=== PATIENT | female | born 1985 | race African-American/Black ===

== ENCOUNTER 2021-07-01 09:18 | Emergency (ER) | payer OTHER, SELFPAY ==
[2021-07-01 09:29] VITALS: BP 119/81; PULSE 104; RESP 16; TEMP 37.1; O2SAT 99
--- NOTE | 2021-07-01 10:35 | ED.URI ---
HPI - URI/Sore Throat General Chief Complaint: Ear Stated Complaint: Ear Pain Time Seen by Provider: 07/01/21 10:17 Source: patient and RN notes reviewed Mode of arrival: ambulatory Limitations: no limitations History of Present Illness HPI Narrative: Patient presents today complaining of right ear pain x2 days with sore throat that is most painful with swallowing. Patient currently rates her pain 10/10. Denies difficulty swallowing, fever, cough, congestion or rhinorrhea. She has been taking some leftover [place] without relief. MD elicited complaint: sore throat and other (Ear pain) Related Data Allergies Allergy/AdvReac Type Severity Reaction Status Date / Time No Known Allergies Allergy Verified 07/13/19 12:27 Review of Systems Review of Systems: CONSTITUTIONAL: Denies body aches, fever, chills, or sweats. EYES: Denies visual changes, redness, or discharge. ENT: Denies rhinorrhea, congestion. + Ear pain, sore throat CARDIOVASCULAR: Denies chest pain, palpitations, or edema. RESPIRATORY: Denies cough or dyspnea. GASTROINTESTINAL: Denies abdominal pain, nausea, vomiting, or diarrhea. GENITOURINARY: Denies dysuria or hematuria. SKIN: Denies rash, itching, or wounds. MUSCULOSKELETAL: Denies back pain, joint pain, or myalgia. NEUROLOGIC: Denies headache, numbness, tingling, or weakness. PSYCH: Denies depression or anxiety. [facility] Past Medical History Medical History Asthma Depression Fracture of left hand Hodgkin's lymphoma Pulmonary embolism Surgical History Surgical History H/O tubal ligation Family History Family History Mother Patient's mother is in good health Father Patient's father is in good health Grandparent Diabetes mellitus Other Asthma Social History Social History Alcohol intake: current Comments At time of signature, I have reviewed and agree with nursing past medical, surgical, social and family history unless otherwise noted. Please see nursing chart for further information. There is no relevant family history pertinent to the presenting complaint Exam Narrative: GENERAL: Well-appearing, well-nourished, and in no acute distress. HEAD: Normocephalic, atraumatic. EYES: EOMI. No redness or drainage. Conjunctivae normal. ENT: Mucous membranes pink and moist. Nares clear. No rhinorrhea. TMs normal bilaterally. Throat mildly erythematous. Small amount of white exudate on the right tonsil. Uvula midline. NECK: Normal AROM. Supple. Right anterior cervical chain lymphadenopathy. CHEST: No respiratory distress. Clear to auscultation. HEART: Regular rate and rhythm. No murmur appreciated. Normal peripheral pulses. EXTREMITIES: Normal range of motion. No edema. SKIN: Warm, dry, no rash. Capillary refill normal. Normal skin turgor. NEURO: No focal deficits. Alert and oriented x3. Gait steady. PSYCH: Normal affect. No signs of depression or anxiety. Course Vital Signs Vital signs: Vital Signs Temperature 98.8 F 07/01/21 09:29 Pulse Rate 104 H 07/01/21 09:29 Respiratory Rate 16 07/01/21 09:29 Blood Pressure 119/81 07/01/21 09:29 Pulse Oximetry 99 07/01/21 09:29 Temperature 98.8 F 07/01/21 09:29 Pulse Rate 104 H 07/01/21 09:29 Respiratory Rate 16 07/01/21 09:29 Blood Pressure 119/81 07/01/21 09:29 Pulse Oximetry 99 07/01/21 09:29 Reviewed. Pt has been instructed to follow up with her PCP regarding her elevated blood pressure today. MDM - URI/Sore Throat Differential Diagnosis Differential diagnosis: Likely upper respiratory infection, otitis media, sinusitis, viral infection, pharyngitis and other (Strep throat) Lab Data Attestation: I reviewed the patient's lab results. Labs: Strep Screen
== END 2021-07-01 10:48 | disposition home or self-care (01) ==
PROVIDERS: Emergency Provider Nurse Practitioner
DX: J02.8 Acute pharyngitis due to other specified organisms (principal); J45.909 Unspecified asthma, uncomplicated; Z85.71 Personal history of Hodgkin lymphoma; Z86.711 Personal history of pulmonary embolism
CPT/HCPCS: 87081; 87880; 99213; G0463

== ENCOUNTER 2021-12-28 11:25 | Emergency (ER) | payer OTHER, SELFPAY ==
[2021-12-28 11:33] VITALS: BP 125/71; PULSE 104; RESP 16; TEMP 36.3; O2SAT 100
--- NOTE | 2021-12-28 11:48 | ED.URI ---
HPI - URI/Sore Throat General Chief Complaint: Upper Respiratory Infection Stated Complaint: sore throat/ear pain Time Seen by Provider: 12/28/21 11:35 Source: patient Mode of arrival: ambulatory Limitations: no limitations History of Present Illness HPI Narrative: Mayela is a 36-year-old female patient presenting to the clinic today with complaints of sore throat and ear pain x2 days. She reports that she has had fever and chills as well. No known exposure to anyone with COVID, flu, or strep. MD elicited complaint: fever, sore throat and other (Right ear pain) Related Data Allergies Allergy/AdvReac Type Severity Reaction Status Date / Time No Known Allergies Allergy Verified 07/13/19 12:27 Review of Systems Review of Systems: Pertinent positives per HPI. Patient denies any rash, headache, visual changes, dizziness, cough, shortness of breath, chest pain, palpitations, nausea, vomiting, diarrhea, constipation, abdominal pain, or any urinary issues. PMFSH Past Medical History Medical History Asthma Depression Fracture of left hand Hodgkin's lymphoma Pulmonary embolism Surgical History Surgical History H/O tubal ligation Family History Family History Mother Patient's mother is in good health Father Patient's father is in good health Grandparent Diabetes mellitus Other Asthma Social History Social History Alcohol intake: current Comments At the time of my signature, I reviewed and agree with the nursing past medical, surgical, social, and family history. There is no relevant family history pertinent to the patient complaint. Exam Narrative: General: Well-developed, well nourished, in no apparent distress Head: Normocephalic, atraumatic Eyes: Pupils equally round and reactive to light bilaterally, EOM intact, sclera and conjunctive clear, no discharge, lids normal Ears: Left TMs intact, dull, mild bulging, right TM intact, red, bulging, ear canals clear, no drainage, grossly hearing normal. Nose: Nares patent, clear nasal discharge, mild inflammation, no sinus tenderness. Mouth: Oral pharynx without lesions or masses, good dentition, MMM. Bilateral tonsillar edema 2+ with white exudate Neck: Supple, trachea midline, enlargement of anterior cervical nodes, no thyroid masses or goiter palpable. Cardio: Regular rate and rhythm, s1 and s2 normal, no murmur appreciated. Resp: Clear to auscultation bilaterally, no rhonchi, rales, wheezing or rubs Course Course Emergency Course: Portions of this record may have been created with voice recognition software. Level of Care: Express Care Visit Vital Signs Vital signs: Vital Signs Temperature 36.3 C L 12/28/21 11:33 Pulse Rate 104 H 12/28/21 11:33 Respiratory Rate 16 12/28/21 11:33 Blood Pressure 125/71 12/28/21 11:33 Pulse Oximetry 100 12/28/21 11:33 Temperature 36.3 C L 12/28/21 11:33 Pulse Rate 104 H 12/28/21 11:33 Respiratory Rate 16 12/28/21 11:33 Blood Pressure 125/71 12/28/21 11:33 Pulse Oximetry 100 12/28/21 11:33 Vital signs reviewed MDM - URI/Sore Throat MDM Narrative Medical decision making narrative: At the time of visit patient is resting uncomfortably on the exam table. Reports right ear pain and sore throat. Strep screen was obtained and was positive for strep. Right TM red, bulging, intact. I we will treat for strep pharyngitis/right otitis media using azithromycin as patient stated that she had a penicillin allergy when she was younger. Supportive measures were discussed with patient and she agreed to discharge plan. Differential Diagnosis Differential diagnosis: Likely upper respiratory infection, croup, otitis media, sinusitis, viral infection, bronchi
== END 2021-12-28 11:54 | disposition home or self-care (01) ==
PROVIDERS: Emergency Provider Nurse Practitioner Family
DX: J02.0 Streptococcal pharyngitis (principal); H66.001 Acute suppurative otitis media without spontaneous rupture of ear drum, right ear
CPT/HCPCS: 87880; 99213; G0463

== ENCOUNTER 2022-11-28 16:31 | Emergency (ER) | payer OTHER, SELFPAY ==
[2022-11-28] VITALS (23 sets, daily range): BP systolic 114–137; BP diastolic 68–108; PULSE 0–122; RESP 0–26; TEMP 36.8; O2SAT 98–99
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
--- NOTE | ~2022-11-28 | XR_ITS ---
EXAMINATION: XR femur RT min 2V INDICATION: Right leg pain TECHNIQUE: Two views of the right femur are obtained on three radiographs. COMPARISON: None available FINDINGS: No fracture, dislocation, or subluxation. The bones, soft tissues, and joint spaces are nor mal. IMPRESSION: 1. No acute osseous abnormality. Reviewed, dictated and finalized at location L.
--- NOTE | ~2022-11-28 | XR_ITS ---
EXAMINATION: XR knee LT 3V DATE: 11/28/2022 21:14 INDICATION: Left knee pain TECHNIQUE: Four views of the left knee were obtained. COMPARISON: None. FINDINGS: Alignment is normal. No fracture or osteochondral lesion. Joint spaces are normal with no e rosions. No joint effusion/synovitis. Soft tissues are unremarkable. IMPRESSION: 1. No acute osseous abnormality. Reviewed, dictated and finalized at location L.
--- NOTE | ~2022-11-28 | CT_ITS ---
EXAMINATION: CT chest abdomen pelvis w con DATE: 11/28/2022 20:55 INDICATION: Respiratory and two quarters TECHNIQUE: Computed tomography (CT) of the chest, abdomen, and pelvis was performed with 100 mL Omnip aque-350 intravenous contrast. Automated exposure control and iterative reconstruction technique were employed. The dose-length product was 1546.40 mGy-cm. COMPARISON: CT chest dated 12/06/[address] abdomen and pelvis dated 10/18/2013 FINDINGS: CHEST CT: Small calcified left upper lobe nodule consistent with old granulomatous disease. A few small bulla a nd mild pleural parenchymal scarring at the right apex. Subtle mosaic attenuation in the lungs consis tent with small airway disease. No pneumonia, pulmonary edema, pleural effusion or pneumothorax. Hear t size is normal. No pericardial effusion. Thoracic aorta is normal in caliber with no dissection or acute traumatic aortic injury. Multinodular goiter. Moderate-sized sliding-type hiatal hernia. There is edematous-appearing wall thickening in the distal esophagus which could be seen with esophagitis. Slight increase in size of a 1.7 x 1.3 cm subcarinal nodule, potentially a lymph node which exerts ma ss effect upon the right anterior wall of the esophagus which previously measured 1.5 x 1.2 cm. No ot her pathologically enlarged thoracic lymphadenopathy. Chronic appearing mild compression fractures at T8 and T11 with 20% anterior vertebral body height loss which is new since 2018. Unchanged sclerotic T6 bone island. ABDOMEN/PELVIS CT: Focal hepatic steatosis at the ligamentum teres. Stable calcified gallstones in the normal-appearing gallbladder with no evident wall thickening or pericholecystic inflammatory stranding to suggest acut e cholecystitis. Pancreas, spleen, right adrenal gland and bilateral kidneys are normal. 1.2 cm macro scopic fat attenuation left adrenal myelolipoma. Bowels including the appendix are normal. Fibroid ut erus which exerts mass effect upon the partially decompressed bladder. The largest uterine fibroid me asures 10.2 cm. No free intraperitoneal gas or fluid. No pathologically enlarged abdominal or pelvic lymphadenopathy. Chronic right sided L5 pars interarticularis defect. No acute onset mild to . IMPRESSION: 1. No acute fractures or acute visceral organ injury in the chest, abdomen or pelvis. 2. Moderate-sized sliding-type hiatal hernia with chronic wall thickening at the distal esophagus whi ch could be seen with esophagitis related to reflux. 3. Slight interval enlargement in a now 1.7 x 1.3 cm subcarinal nodule, likely a lymph node which cou ld be reactive but does raise some concern for recurrence of known history of prior Hodgkin's lymphom a. 4. Cholelithiasis. 5. Fibroid uterus. Reviewed, dictated and finalized at location A. IMPRESSION: 1. No acute fractures or acute visceral organ injury in the chest, abdomen or p caio. 2. Moderate-sized sliding-type hiatal hernia with chronic wall thickening at th e distal esophagus which could be seen with esophagitis related to reflux. 3. Slight interval enlargement in a now 1.7 x 1.3 cm subcarinal nodule, likely a lymph node which could be reactive but does raise some concern for recurrence of known history of prior Hodgkin's lymphoma. 4. Cholelithiasis. 5. Fibroid uterus.
--- NOTE | ~2022-11-28 | XR_ITS ---
EXAMINATION: XR knee RT 3V DATE: 11/28/2022 21:14 INDICATION: Right knee pain TECHNIQUE: Four views of the right knee were obtained. COMPARISON: 12/31/2018 FINDINGS: Alignment is normal. No fracture or osteochondral lesion. There is mild tricompartmental os teoarthritis characterized by tiny marginal osteophytes. No joint effusion/synovitis. Soft tissues a re unremarkable. IMPRESSION: 1. No acute osseous abnormality. Reviewed, dictated and finalized at location L.
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
--- NOTE | ~2022-11-28 | XR_ITS ---
EXAMINATION: XR femur LT min 2V INDICATION: Left femur pain TECHNIQUE: Two views of the left femur are obtained on four radiographs. COMPARISON: None available FINDINGS: No fracture, dislocation, or subluxation. The bones, soft tissues, and joint spaces are nor mal. IMPRESSION: 1. No acute osseous abnormality. Reviewed, dictated and finalized at location L.
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
--- NOTE | 2022-11-28 16:58 | PC.NURSE ---
Patient refused to wear c-collar and removed it
[2022-11-28] MEDS: ONDANSETRON INJ 4 MG/2 ML VIAL IV PUSH (19:59)
[2022-11-28 20:09] LABS: Basophils Absolute Auto 0.1 K/mm3 (0.0-0.1); Basophils Percent Auto 0.9 % (0.2-1.2); Eosinophils Absolute Auto 0.1 K/mm3 (0-0.3); Eosinophils Percent Auto 1.3 % (0-4.4); Hematocrit 39.1 % (37.0-47.0); Hemoglobin 12.1 g/dL (12.0-15.0); Immature Granulocyte Absolute 0.03 K/mm3 (0.00-0.031); Immature Granulocyte Percent A 0.3 % (0-0.5); Lymphocytes Absolute Auto 3.54 K/mm3 (0.9-3.2); Lymphocytes Percent Auto 39.6 % (18.3-44.2); Mean Corpuscular HGB Conc 30.9 g/dl (32-36); Mean Corpuscular Volume 83.9 fl (80-100); Mean Platelet Volume 9.3 fl (7.4-10.4); Monocytes Absolute Auto 0.7 K/mm3 (0.1-0.6); Monocytes Percent Auto 7.5 % (2.6-8.5); Neutrophils Absolute Auto 4.5 K/mm3 (1.3-6.7); Neutrophils Percent Auto 50.4 % (45.5-73.1); Platelet Count Result 327 k/mm3 (150-375); Red Blood Count 4.66 M/mm3 (4.2-5.4); Red Cell Distribution Width 15.6 % (11.5-14.5)
[2022-11-28 20:21] LABS: Alanine Aminotransferase 34 U/L (6-35); Albumin Level 4.9 g/dL (3.5-5.1); Alkaline Phosphatase 78 U/L (38-126); Anion Gap 18 mmol/L (8-16); Aspartate Amino Transferase 35 U/L (14-36); Bilirubin,Total 0.6 mg/dL (0.2-1.3); Blood Urea Nitrogen 9 mg/dL (7-17); Calcium 8.7 mg/dL (8.4-10.2); Carbon Dioxide 20 mmol/L (22-30); Chloride 106 mmol/L (98-107); Estimated CRCL calculation 106 ml/min; Estimated Glomerular Filt Rate > 60; Ethanol 180 mg/dL (<10); Glucose 110 mg/dL (65-110); Potassium 3.6 mmol/L (3.4-5.0); Sodium 144 mmol/L (137-145)
[2022-11-28 20:40] LABS: Appearance Urine Clear (Clear); Bacteria Urine 4+ /hpf; Bilirubin Urine Negative (Negative); Blood Urine Negative (Negative); Color Urine Yellow (Yellow); Glucose Urine UA Negative (Negative); Ketones Urine Negative (Negative); Leukocyte Esterase Ur Negative LEU/UL (Negative); Nitrate Urine Positive (Negative); Non Pathogenic Casts 0-2; Protein Urine Negative (Negative); RBC Urine 0-2 /hpf (0-2); Specific Grav Ur 1.011 (1.001-1.035); Squamous Epithelial Cell Urine Occasional /hpf (Few); WBC Urine 0-5 /hpf; pH Urine 7.5 (5.0-9.0)
[2022-11-28 20:41] LABS: Add Urine Microscopic? YES
[2022-11-28 20:46] LABS: Amphetamine Screen Urine Negative (Negative); Barbiturate Screen Urine Negative (Negative); Benzodiazepines Screen Urine Negative (Negative); Cannabinoid Screen Urine Positive (Negative); Cocaine Screen Urine Negative (Negative); Methadone Screen Urine Negative (Negative); Opiate Screen Urine Negative (Negative); Phencyclidine Screen Urine Negative (Negative)
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
== END 2022-11-28 23:57 | disposition home or self-care (01) ==
PROVIDERS: Emergency Provider Emergency Medicine
DX: S20.219A Contusion of unspecified front wall of thorax, initial encounter (principal); F10.129 Alcohol abuse with intoxication, unspecified; Y90.6 Blood alcohol level of 120-199 mg/100 ml; J45.909 Unspecified asthma, uncomplicated; Z85.71 Personal history of Hodgkin lymphoma; Z86.711 Personal history of pulmonary embolism; K80.20 Calculus of gallbladder without cholecystitis without obstruction; M47.812 Spondylosis without myelopathy or radiculopathy, cervical region; D25.9 Leiomyoma of uterus, unspecified; K44.9 Diaphragmatic hernia without obstruction or gangrene; R91.8 Other nonspecific abnormal finding of lung field; V03.10XA Pedestrian on foot injured in collision with car, pick-up truck or van in traffic accident, initial encounter
CPT/HCPCS: 36415; 70450; 71101; 71260; 72100; 72125; 73552; 73562; 74177; 80053; 80307; 81001; 81025; 85025; 96374; 99284; J2405; L0140; Q9967

== ENCOUNTER 2023-01-10 18:35 | Emergency (ER) | payer OTHER, SELFPAY ==
--- NOTE | 2023-01-10 18:39 | ED.GENADULT ---
HPI - General Adult General Chief complaint: Urogenital-Female Stated complaint: Vaginal Problems Time Seen by Provider: 01/10/23 18:42 Source: patient, RN notes reviewed and old records reviewed Mode of arrival: ambulatory Limitations: no limitations History of Present Illness HPI narrative: 37-year-old female presents to the [facility] morning her blood checked. Requesting labs. Explained to patient that we do not offer that service. Patient states she got her period 5 days ago. States that this period Was extremely heavy and was concerned for her blood levels. States that she had to call in sick to work the last several days. States that she goes through several tampons a day. Unsure of the actual count. Had a history of a blood transfusion January of 2022 Reviewed March 2023 both levels from ER, within normal range Requesting a work note. Related Data Home Medications Medication Instructions Recorded Confirmed No Home Medications 01/10/23 01/10/23 Allergies Allergy/AdvReac Type Severity Reaction Status Date / Time Penicillins Allergy Hives Verified 11/28/22 20:12 Review of Systems Review of Systems: All systems reviewed & are unremarkable except as noted in HPI and below Constitutional: Constitutional: Reports no additional constitutional complaints Eyes: Eyes: Reports no additional eye complaints ENT: Reports system reviewed and no additional complaints, except as documented Cardiovascular: Cardiovascular: Reports no additional cardiovascular complaints, Denies chest pain and Denies dyspnea Respiratory: Respiratory: Reports no additional respiratory complaints, Denies chest congestion, Denies cough and Denies dyspnea Gastrointestinal: Gastrointestinal: Reports no additional gastrointestinal complaints, Denies abdominal pain, Denies nausea and Denies vomiting Genitourinary: Genitourinary: Reports as per HPI and Reports abnormal vaginal bleeding Musculoskeletal: Musculoskeletal: Reports no additional musculoskeletal complaints Integumentary/Breasts: Skin/Breast: Reports system reviewed and no additional complaints, except as docu Neurologic: Reports system reviewed and no additional complaints, except as documented Psychiatric: Psychiatric: Reports no additional psychiatric complaints Allergic/Immunologic: Allergic/Immunologic: Reports no additional allergic/immunologic complaints PMFSH Past Medical History Medical History Asthma Depression Fracture of left hand Hodgkin's lymphoma Pulmonary embolism Surgical History Surgical History H/O tubal ligation Family History Family History Mother Patient's mother is in good health Father Patient's father is in good health Grandparent Diabetes mellitus Other Asthma Social History Social History Alcohol intake: current Comments At the time of my signature, I reviewed and agree with the nursing past medical, surgical, social, and family history. There is no relevant family history pertinent to the patient complaint. Exam Const: General: cooperative, no acute distress, well developed, alert, uncomfortable, well nourished and underweight Nutritional Appearance: well nourished Orientation/consciousness: patient oriented x3 Limitations: no limitations HENMT: Head: normal to inspection Ears: hearing grossly normal bilaterally and external ears normal Face/Nose/Sinus: Normal external nose present, Normal nares present, Normal nasal mucous membranes and turbinates present and normal facial exam Face and sinus: normal facial exam Mouth: Yes Normal oral and palatal mucosa present, Yes lip normal and Yes moist mucous membranes Throat: posterior oropharynx normal and uvula midline Eyes: General: appearance normal, vinay
[2023-01-10 18:41] VITALS: BP 133/89; PULSE 99; RESP 16; TEMP 36.6; O2SAT 100
== END 2023-01-10 18:59 | disposition home or self-care (01) ==
PROVIDERS: Emergency Provider Nurse Practitioner; PCP Physician Assistant
DX: N92.0 Excessive and frequent menstruation with regular cycle (principal); J45.909 Unspecified asthma, uncomplicated; Z86.711 Personal history of pulmonary embolism; Z85.71 Personal history of Hodgkin lymphoma
CPT/HCPCS: 99211; G0463

== ENCOUNTER 2024-08-13 16:57 | Emergency (ER) | payer OTHER, SELFPAY ==
[2024-08-13 17:17] VITALS: BP 155/96; PULSE 96; RESP 17; TEMP 36.4; O2SAT 100
--- NOTE | 2024-08-13 17:22 | ED_ITS ---
HPI - General Adult General Chief complaint: Recheck/Abnormal Lab/Rx <Jory Encarnacion APRN - Last Filed: 08/13/24 17:26> Stated complaint: HTN, gen. weakness <Jory Encarnacion APRN - Last Filed: 08/13/24 17:26> Time Seen by Provider: 08/13/24 17:15 <Jory Encarnacion APRN - Last Filed: 08/13/24 17:26> Focused HPI: Patient is a 38-year-old female who presents to the ER with complaints of not feeling well and feeling weak. She reports this is been going on for a long time. Patient reports she has a history of high blood pressure it is not medicated for it. She denies any headache, abdominal pain, urinary symptoms, one-sided weakness/tingling/numbness. Patient reports she has a history of Hodgkin's lymphoma and a pulmonary embolism. Reports she has been trying to see her primary care provider but she keeps cancelling appointments. GENERAL: Ill-appearing, well-nourished, and in mild distress d/t vomiting. HEAD: Normocephalic, atraumatic. CHEST: Clear to auscultation. ?No respiratory distress. HEART: Regular rate and rhythm.? NEURO: ?Alert and oriented x3. Patient screened in triage and initial orders placed.? ?Additional care and disposition to be based upon?diagnostic testing and treatment. <Jory Encarnacion APRN - Last Filed: 08/13/24 17:26> History of Present Illness HPI narrative: Patient 30-year-old female who presents emergency department with chief complaint of not feeling well. Patient reports she has been weak for a long period of time reports that she has history of high blood pressure but currently not taking medications. Patient states that she has had issues with anemia before and has had transfusions in the past patient reports that she has a primary care provider but is not going to appointments because there has been cancellations of appointments the patient denies chest pain denies shortness of breath <Rinku Castillo MD - Last Filed: 08/13/24 22:05> Related Data Allergies/adverse reactions: Allergies Allergy/AdvReac Type Severity Reaction Status Date / Time Penicillins Allergy Hives Verified 08/13/24 17:03 <Jory Encarnacion APRN - Last Filed: 08/13/24 17:26> Review of Systems 2 Review of Systems: A 10 system review of systems was completed on the patient and is negative except for what is stated in the HPI. Nursing and ancillary documentation was reviewed. <Rinku Castillo MD - Last Filed: 08/13/24 22:05> PMFSH Past Medical History Medical History: Medical History Hodgkin's lymphoma Fracture of left hand Depression Pulmonary embolism Asthma <Jory Encarnacion APRN - Last Filed: 08/13/24 17:26> Surgical History Surgical History: Surgical History H/O tubal ligation <Jory Encarnacion APRN - Last Filed: 08/13/24 17:26> Family History Family History: Family History Mother Patient's mother is in good health Father Patient's father is in good health Grandparent Diabetes mellitus Other Asthma <Jory Encarnacion APRN - Last Filed: 08/13/24 17:26> Social History Social History: Social History Alcohol intake: current <Jory Encarnacion APRN - Last Filed: 08/13/24 17:26> Exam 2 Narrative: GENERAL: Well-appearing, well-nourished, and in no acute distress. HEAD: Normocephalic, atraumatic. EYES: PERRLA and EOMI. ENT: Nares clear, no rhinorrhea or epistaxis. Mucous membranes moist. NECK: Supple. CHEST: Clear to auscultation. No respiratory distress. HEART: Regular rate and rhythm. No murmur heard. Normal peripheral pulses. ABDOMEN: Soft, nontender, nondistended, normal active bowel sounds. EXTREMITIES: Normal range of motion. No edema. SKIN: Warm, dry, no rash. NEURO: No focal deficits. Alert and oriented x3. PSYCH: Normal mood and affect. <Rinku Castillo MD - Last Filed: 08/13/24 22:05> Course Vital Signs Vital signs: Vital Signs Temperature 36.4 C 08/13/24 17:17 Pulse Rate 96 08/13/24 17:17 Respiratory Rate 17 08/13/24 17:17 Blood Pressure 155/96 H 08/13/24 17:17 Pulse Oximetry 100 08/13/24 17:17 Temperature 36.4 C 08/13/24 17:17 Pulse Rate 96 08/13/24 17:17 Respiratory Rate 17 08/13/24 17:17 Blood Pressure 155/96 H 08/13/24 17:17 Pulse Oximetry 100 08/13/24 17:17 <Jory Encarnacion, [employer] - Last Filed: 08/13/24 17:26> Vital Signs Temperature 36.4 C 08/13/24 17:17 Pulse Rate 96 08/13/24 17:17 Respiratory Rate 17 08/13/24 17:17 Blood Pressure 155/96 H 08/13/24 17:17 Pulse Oximetry 100 08/13/24 17:17 Temperature 36.4 C 08/13/24 17:17 Pulse Rate 96 08/13/24 17:17 Respiratory Rate 17 08/13/24 17:17 Blood Pressure 155/96 H 08/13/24 17:17 Pulse Oximetry 100 08/13/24 17:17 <Rinku Castillo MD - Last Filed: 08/13/24 22:05> Medical Decision Making MDM Narrative Medical decision making narrative: Differential diagnosis includes anemia, electrolyte abnormality, UTI, dehydration Patient's blood pressure is currently 155/96. Patient shows no focal neurological deficits denies chest pain denies shortness of breath is not tachycardic or hypotensive or hypoxic. Urinalysis showed evidence of UTI patient will be started on Keflex <Rinku Castillo MD - Last Filed: 08/13/24 22:05> Vital Signs Vital Signs: Vital Signs Temperature 36.4 C 08/13/24 17:17 Pulse Rate 96 08/13/24 17:17 Respiratory Rate 17 08/13/24 17:17 Blood Pressure 155/96 H 08/13/24 17:17 Pulse Oximetry 100 08/13/24 17:17 Temperature 36.4 C 08/13/24 17:17 Pulse Rate 96 08/13/24 17:17 Respiratory Rate 17 08/13/24 17:17 Blood Pressure 155/96 H 08/13/24 17:17 Pulse Oximetry 100 08/13/24 17:17 <Jory Encarnacion APRN - Last Filed: 08/13/24 17:26> Vital Signs Temperature 36.4 C 08/13/24 17:17 Pulse Rate 96 08/13/24 17:17 Respiratory Rate 17 08/13/24 17:17 Blood Pressure 155/96 H 08/13/24 17:17 Pulse Oximetry 100 08/13/24 17:17 Temperature 36.4 C 08/13/24 17:17 Pulse Rate 96 08/13/24 17:17 Respiratory Rate 17 08/13/24 17:17 Blood Pressure 155/96 H 08/13/24 17:17 Pulse Oximetry 100 08/13/24 17:17 <Rinku Castillo MD - Last Filed: 08/13/24 22:05> Lab Data Result diagrams: 08/13/24 17:57 08/13/24 17:57 <Jory Encarnacion APRN - Last Filed: 08/13/24 17:26> Labs: Lab Results 08/13/24 08/13/24 08/13/24 Range/Units 17:54 17:57 21:43 WBC 4.1 L (4.5-10.0) K/mm3 RBC 3.67 L (4.2-5.4) M/mm3 Hgb 9.3 L (12.0-15.0) g/dL Hct 30.6 L (37.0-47.0) % MCV 83.4 (80-100) fl MCH 25.3 L (26-34) pg MCHC 30.4 L (32-36) g/dl RDW 15.9 H (11.5-14.5) % Plt Count 360 (150-375) k/mm3 MPV 9.1 (7.4-10.4) fl Immature Gran % (Auto) 0.2 (0-0.5) % Neut % (Auto) 58.7 (45.5-73.1) % Lymph % (Auto) 31.7 (18.3-44.2) % Walton % (Auto) 7.4 (2.6-8.5) % Eos % (Auto) 1.0 (0-4.4) % Baso % (Auto) 1.0 (0.2-1.2) % Lymph # (Auto) 1.29 (0.9-3.2) K/mm3 Walton # (Auto) 0.3 (0.1-0.6) K/mm3 Eos # (Auto) 0.0 (0-0.3) K/mm3 Baso # (Auto) 0.0 (0.0-0.1) K/mm3 Abs Immat Gran (auto) 0.01 (0.00-0.031) K/mm3 Absolute Neuts (auto) 2.4 (1.3-6.7) K/mm3 Absolute Nucleated RBC 0.000 (0.0-0.012) K/mm3 Nucleated RBC % 0.0 (0.0-0.2) % Sodium 140 (137-145) mmol/L Potassium 3.7 (3.4-5.0) mmol/L Chloride 107 (98-107) mmol/L Carbon Dioxide 27 (22-30) mmol/L Anion Gap 6 (4-12) mmol/L BUN 12 (7-17) mg/dL Creatinine 0.70 (0.7-1.0) mg/dL Estim Creat Clear Calc Not Reportable Estimated GFR > 60 (59 - ) Glucose 82 (65-110) mg/dL POC Capillary Glucose 73 (65-105) mg/dl Lactic Acid 2.1 H (0.7-2.0) mmol/L Calcium 8.6 (8.4-10.2) mg/dL Total Bilirubin 0.4 (0.2-1.3) mg/dL AST 27 (14-36) U/L ALT 20 (6-35) U/L Alkaline Phosphatase 66 (38-126) U/L Total Protein 7.0 (6.3-8.2) g/dL Albumin 4.1 (3.5-5.1) g/dL Lipase 90 (23-300) U/L Beta HCG, Quant < 2.39 mIU/ML Urine Color Yellow (Yellow) Urine Appearance Cloudy H (Clear) Urine pH 7.5 (5.0-9.0) Ur Specific Chadron 1.018 (1.001-1.035) Urine Protein 1+ H (Negative) mg/dL Urine Glucose (UA) Negative (Negative) mg/dL Urine Ketones Negative (Negative) mg/dL Ur Blood (Man) Negative (Negative) Urine Nitrate Positive H (Negative) Urine Bilirubin Negative (Negative) Urine Urobilinogen 1.0 (<2.0) mg/dL Leukocyte Esterase Rfl Trace H (Negative) CHAYA/UL Urine RBC 0-2 (0-2) /hpf Urine WBC 21-50 H (0-3) /hpf Ur Squamous Epith Cells None seen (Few) /hpf Urine Bacteria 4+ H /hpf Urine Casts 0-2 <Jory Encarnacion, [employer] - Last Filed: 08/13/24 17:26> Lab Results 08/13/24 08/13/24 08/13/24 Range/Units 17:54 17:57 21:43 WBC 4.1 L (4.5-10.0) K/mm3 RBC 3.67 L (4.2-5.4) M/mm3 Hgb 9.3 L (12.0-15.0) g/dL Hct 30.6 L (37.0-47.0) % MCV 83.4 (80-100) fl MCH 25.3 L (26-34) pg MCHC 30.4 L (32-36) g/dl RDW 15.9 H (11.5-14.5) % Plt Count 360 (150-375) k/mm3 MPV 9.1 (7.4-10.4) fl Immature Gran % (Auto) 0.2 (0-0.5) % Neut % (Auto) 58.7 (45.5-73.1) % Lymph % (Auto) 31.7 (18.3-44.2) % Walton % (Auto) 7.4 (2.6-8.5) % Eos % (Auto) 1.0 (0-4.4) % Baso % (Auto) 1.0 (0.2-1.2) % Lymph # (Auto) 1.29 (0.9-3.2) K/mm3 Walton # (Auto) 0.3 (0.1-0.6) K/mm3 Eos # (Auto) 0.0 (0-0.3) K/mm3 Baso # (Auto) 0.0 (0.0-0.1) K/mm3 Abs Immat Gran (auto) 0.01 (0.00-0.031) K/mm3 Absolute Neuts (auto) 2.4 (1.3-6.7) K/mm3 Absolute Nucleated RBC 0.000 (0.0-0.012) K/mm3 Nucleated RBC % 0.0 (0.0-0.2) % Sodium 140 (137-145) mmol/L Potassium 3.7 (3.4-5.0) mmol/L Chloride 107 (98-107) mmol/L Carbon Dioxide 27 (22-30) mmol/L Anion Gap 6 (4-12) mmol/L BUN 12 (7-17) mg/dL Creatinine 0.70 (0.7-1.0) mg/dL Estim Creat Clear Calc Not Reportable Estimated GFR > 60 (59 - ) Glucose 82 (65-110) mg/dL POC Capillary Glucose 73 (65-105) mg/dl Lactic Acid 2.1 H (0.7-2.0) mmol/L Calcium 8.6 (8.4-10.2) mg/dL Total Bilirubin 0.4 (0.2-1.3) mg/dL AST 27 (14-36) U/L ALT 20 (6-35) U/L Alkaline Phosphatase 66 (38-126) U/L Total Protein 7.0 (6.3-8.2) g/dL Albumin 4.1 (3.5-5.1) g/dL Lipase 90 (23-300) U/L Beta HCG, Quant < 2.39 mIU/ML Urine Color Yellow (Yellow) Urine Appearance Cloudy H (Clear) Urine pH 7.5 (5.0-9.0) Ur Specific Chadron 1.018 (1.001-1.035) Urine Protein 1+ H (Negative) mg/dL Urine Glucose (UA) Negative (Negative) mg/dL Urine Ketones Negative (Negative) mg/dL Ur Blood (Man) Negative (Negative) Urine Nitrate Positive H (Negative) Urine Bilirubin Negative (Negative) Urine Urobilinogen 1.0 (<2.0) mg/dL Leukocyte Esterase Rfl Trace H (Negative) CHAYA/UL Urine RBC 0-2 (0-2) /hpf Urine WBC 21-50 H (0-3) /hpf Ur Squamous Epith Cells None seen (Few) /hpf Urine Bacteria 4+ H /hpf Urine Casts 0-2 <Rinku Castillo MD - Last Filed: 08/13/24 22:05> Discharge Plan Discharge Clinical Impression: Generalized weakness, Anemia, UTI (urinary tract infection) <Jory Encarnacion APRN - Last Filed: 08/13/24 17:26> Patient Disposition: Home, Self-Care <Jory Encarnacion APRN - Last Filed: 08/13/24 17:26> Condition: Stable <Jory Encarnacion APRN - Last Filed: 08/13/24 17:26> Instructions: Antibiotic Form, Urinary Tract Infection in Women (ED), Weakness (ED), Anemia (ED) <Jory Encarnacion APRN - Last Filed: 08/13/24 17:26> Patient Language: Mozambican <Jory Encarnacion APRN - Last Filed: 08/13/24 17:26> Prescriptions: New cephalexin 500 mg capsule 500 mg PO Q12H 7 Days Qty: 14 0RF <Jroy Encarnacion APRN - Last Filed: 08/13/24 17:26> Follow-up/Referrals: Jose Alejandro,PAUL Brito [Primary Care Provider] - Gurdeep Cardenas MD [Physician] - <Jory Encarnacion APRN - Last Filed: 08/13/24 17:26> Time of Disposition: 22:05 <Jory Encarnacion APRN - Last Filed: 08/13/24 17:26> 22:05 <Rinku Castillo MD - Last Filed: 08/13/24 22:05>
[2024-08-13] MEDS: ONDANSETRON HCL ODT 4 MG TABLET PO (17:26)
[2024-08-13 18:07] LABS: Glucose Point of Care 73 mg/dl (65-105)
[2024-08-13 18:08] LABS: Hematocrit 30.6 % (37.0-47.0); Hemoglobin 9.3 g/dL (12.0-15.0); Immature Granulocyte Absolute 0.01 K/mm3 (0.00-0.031); Immature Granulocyte Percent A 0.2 % (0-0.5); Lymphocytes Absolute Auto 1.29 K/mm3 (0.9-3.2); Lymphocytes Percent Auto 31.7 % (18.3-44.2); Mean Corpuscular HGB Conc 30.4 g/dl (32-36); Mean Corpuscular Hemoglobin 25.3 pg (26-34); Mean Corpuscular Volume 83.4 fl (80-100); Mean Platelet Volume 9.1 fl (7.4-10.4); Monocytes Absolute Auto 0.3 K/mm3 (0.1-0.6); Monocytes Percent Auto 7.4 % (2.6-8.5); Neutrophils Absolute Auto 2.4 K/mm3 (1.3-6.7); Neutrophils Percent Auto 58.7 % (45.5-73.1); Platelet Count Result 360 k/mm3 (150-375); Red Blood Count 3.67 M/mm3 (4.2-5.4); Red Cell Distribution Width 15.9 % (11.5-14.5); White Blood Count 4.1 K/mm3 (4.5-10.0)
[2024-08-13 18:18] LABS: Alanine Aminotransferase 20 U/L (6-35); Albumin Level 4.1 g/dL (3.5-5.1); Alkaline Phosphatase 66 U/L (38-126); Anion Gap 6 mmol/L (4-12); Aspartate Amino Transferase 27 U/L (14-36); Bilirubin,Total 0.4 mg/dL (0.2-1.3); Blood Urea Nitrogen 12 mg/dL (7-17); Calcium 8.6 mg/dL (8.4-10.2); Carbon Dioxide 27 mmol/L (22-30); Chloride 107 mmol/L (98-107); Estimated Glomerular Filt Rate > 60; Glucose 82 mg/dL (65-110); Lipase 90 U/L (23-300); Potassium 3.7 mmol/L (3.4-5.0); Sodium 140 mmol/L (137-145)
[2024-08-13 18:24] LABS: Lactic Acid Reflex 2.1 mmol/L (0.7-2.0)
[2024-08-13 18:35] LABS: Beta HCG Quantitative < 2.39 mIU/ML
[2024-08-13] MEDS: SODIUM CHLORIDE 0.9% IV 1,000 ML 999 ML IV CONT (19:36)
--- NOTE | 2024-08-13 20:47 | PC.NURSE ---
Pt unable to provide UA at this time. Pt offered straight cath and refused.
[2024-08-13 21:05] LABS: Reflex Lactic Acid Yes or No Add Lactic
[2024-08-13 21:54] LABS: Add Urine Microscopic? YES; Appearance Urine Cloudy (Clear); Bacteria Urine 4+ /hpf; Bilirubin Urine Negative (Negative); Blood Urine Negative (Negative); Color Urine Yellow (Yellow); Glucose Urine UA Negative (Negative); Ketones Urine Negative (Negative); Leukocyte Esterase Ur Trace LEU/UL (Negative); Nitrate Urine Positive (Negative); Non Pathogenic Casts 0-2; Protein Urine 1+ mg/dL (Negative); RBC Urine 0-2 /hpf (0-2); Specific Grav Ur 1.018 (1.001-1.035); Squamous Epithelial Cell Urine None Seen /hpf (Few); WBC Urine 21-50 /hpf (0-3); pH Urine 7.5 (5.0-9.0)
[2024-08-13] MEDS: CEPHALEXIN 500 MG CAPSULE PO (22:07)
== END 2024-08-13 22:12 | disposition home or self-care (01) ==
PROVIDERS: Registered Nurse; Emergency Provider Emergency Medicine; PCP Physician Assistant
DX: N39.0 Urinary tract infection, site not specified (principal); D64.9 Anemia, unspecified; R53.1 Weakness; J45.909 Unspecified asthma, uncomplicated; Z86.711 Personal history of pulmonary embolism; Z85.71 Personal history of Hodgkin lymphoma
CPT/HCPCS: 36415; 80053; 81001; 82948; 83605; 83690; 84702; 85025; 87086; 87186; 96361; 96374; 99284; A9270; J7030